=== PATIENT | male | born 2000 | race Caucasian/White ===

== ENCOUNTER 2021-07-11 19:04 | Emergency (ER) | payer MEDICAID ==
[2021-07-11] MEDS ORDERED: Ondansetron 4 MG/2 ML SDV IVPUSH ONE (19:27)
[2021-07-11] MEDS ORDERED: Sodium Chloride 0.9% 1,000 ML IV SCH ×2 (19:30→22:00)
[2021-07-11] MEDS ORDERED: Activated Charcoal/Water Susp 50 GM/240 ML Tube PO ONE (19:32)
[2021-07-11] MEDS: Sodium Chloride 0.9% 10 ML Syringe FLUSH PRN ×2 (19:46→19:47)
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
[2021-07-11 20:32] LABS: ACETAMINOPHEN 402 ug/mL (10-30)
[2021-07-11] MEDS ORDERED: Acetylcysteine 20% 200 MG/ML 30 ML SDV IV ONE (20:45)
[2021-07-11] MEDS ORDERED: Acetylcysteine 15,000 MG in Dextrose 5% in Water 200 ML IV ONE ×2 (21:00)
[2021-07-11] MEDS ORDERED: Metoclopramide 10 MG/2 ML SDV IVPUSH ONE (21:41)
[2021-07-11] MEDS ORDERED: Acetylcysteine 5,000 MG in Dextrose 5% in Water 500 ML IV ONE ×2 (22:00)
[2021-07-12] MEDS ORDERED: Acetylcysteine 10,000 MG in Dextrose 5% in Water 1,000 ML IV ONE ×2 (02:00)
== END 2021-07-12 06:13 ==
LOC: JD.ED 19:04
DX: T39.1X2A Poisoning by 4-Aminophenol derivatives, intentional self-harm, initial encounter (principal); F32.89 Other specified depressive episodes; R00.0 Tachycardia, unspecified; Z20.822 Contact with and (suspected) exposure to COVID-19
CPT/HCPCS: 36415; 80053; 80143; 80179; 80306; 80307; 84443; 85025; 87635; 93005; 96365; 96366; 96375; 99285; J0132; J2405; J2765; J7030; J7060; 93010; 99284; U0002